=== PATIENT | male | born 1945 | race Caucasian/White ===

== ENCOUNTER 2020-04-30 15:11 | Inpatient (IN) ==
[2020-04-30] MEDS ORDERED: Acetaminophen 325 MG TABLET PO PRN (16:57)
[2020-04-30] MEDS ORDERED: *HR* LORazepam 2 MG/ML VIAL IVP PRN ×3 (18:58)
[2020-04-30] MEDS: 0.9 % Sodium Chloride 1,000 ML IVC SCH (19:36)
[2020-04-30] MEDS: Pantoprazole 40 MG VIAL IVP SCH (19:37)
[2020-04-30] MEDS: levETIRAcetam 250 MG TABLET PO SCH (19:37)
[2020-04-30 19:57] LABS: Basophils % 0.4 %; Eosinophils # 0.1 K/mcL (0.0-0.6); Eosinophils % 0.8 %; Hemoglobin 7.4 g/dL (12.9-16.9); Immature Granulocytes % 4.5 % (0-4); Lymphocytes # 1.1 K/mcL (0.6-4.6); Lymphocytes % 14.6 %; Mean Corpuscular HGB Conc 35.2 g/dL (31.6-35.5); Mean Corpuscular Hemoglobin 31.2 pg (28.0-33.3); Mean Corpuscular Volume 88.6 fL (83.0-100.0); Mean Platelet Volume 9.8 fL (9.4-12.4); Monocytes # 0.8 K/mcL (0.0-1.3); Neutrophils # 5.4 K/mcL (1.6-8.9); Platelet Count 245 K/mcL (140-400); Red Blood Count 2.37 M/mcL (4.19-5.50); Red Cell Distribution Width 15.3 % (11.5-14.5); Segmented Neutrophils % 69.7 %; White Blood Count 7.7 K/mcL (4.3-11.1)
[2020-04-30 20:00] LABS: VBG HCO3 25 mEq/L (21-27); VBG PCO2 44 mmHg (41-51); VBG PH 7.37 pH Units (7.32-7.42); VBG PO2 67 mmHg (25-50)
[2020-04-30 20:04] LABS: INR 1.2; Prothrombin Time 13.8 Seconds (9.4-12.1)
[2020-04-30 20:18] LABS: % Iron Saturation 9 % (20-55); BUN/Creatinine Ratio 8 (6-26); Blood Urea Nitrogen 11 mg/dL (8-23); Calcium 8.7 mg/dL (8.6-10.3); Carbon Dioxide 24 mEq/L (23-29); Chloride 96 mEq/L (98-107); Glucose 106 mg/dL (70-105); Iron 21 mcg/dL (65-175); Lactate Dehydrogenase 136 Units/L (140-271); Magnesium 1.9 mg/dL (1.6-2.6); Osmolality,Calculated 264 (280-300); Phosphorous 3.7 mg/dL (2.7-4.5); Sodium 127 mEq/L (136-145); Transferrin 158 mg/dL (203-362); Troponin I < 0.03 ng/mL (< 0.04); eGFR For African Americans > 60 (> 60); eGFR For Non-African Americans 52 (> 60)
[2020-04-30 20:37] LABS: Ferritin 463 ng/mL (20-250)
[2020-04-30] MEDS ORDERED: 0.9 % Sodium Chloride 250 ML ONE (21:03)
[2020-05-01 01:53] LABS: Hemoglobin 8.7 g/dL (12.9-16.9); Mean Corpuscular HGB Conc 34.8 g/dL (31.6-35.5); Mean Corpuscular Hemoglobin 31.1 pg (28.0-33.3); Mean Corpuscular Volume 89.3 fL (83.0-100.0); Mean Platelet Volume 9.5 fL (9.4-12.4); Platelet Count 229 K/mcL (140-400); Red Cell Distribution Width 14.8 % (11.5-14.5); White Blood Count 7.5 K/mcL (4.3-11.1)
[2020-05-01 02:15] LABS: BUN/Creatinine Ratio 7 (6-26); Blood Urea Nitrogen 10 mg/dL (8-23); Calcium 8.5 mg/dL (8.6-10.3); Carbon Dioxide 23 mEq/L (23-29); Chloride 98 mEq/L (98-107); Glucose 99 mg/dL (70-105); Magnesium 1.9 mg/dL (1.6-2.6); Osmolality,Calculated 267 (280-300); Phosphorous 3.7 mg/dL (2.7-4.5); Potassium 3.9 mEq/L (3.5-5.1); Sodium 129 mEq/L (136-145); eGFR For African Americans > 60 (> 60); eGFR For Non-African Americans 50 (> 60)
[2020-05-01] MEDS: Pantoprazole 40 MG VIAL IVP SCH ×2 (05:42→17:49)
[2020-05-01] MEDS: levETIRAcetam 250 MG TABLET PO SCH (09:44)
[2020-05-01] MEDS ORDERED: levETIRAcetam 250 MG TABLET PO ONE (11:17)
[2020-05-01] MEDS: 0.9 % Sodium Chloride 1,000 ML IVC SCH (12:22)
[2020-05-01] MEDS ORDERED: Thiamine (B-1) 100 MG, Folic Acid 1 MG, MVI, adult with vitamin K 10 ML in 0.9 % Sodi... IVPB SCH (18:00)
[2020-05-01 19:26] LABS: Folate > 22.3 ng/mL (3.0-16.0); Vitamin B12 601 pg/mL (250-1100)
[2020-05-01] MEDS ORDERED: levETIRAcetam 250 MG TABLET PO SCH (21:00)
[2020-05-02 01:52] LABS: Hematocrit 24.8 % (37.5-50.1); Hemoglobin 8.8 g/dL (12.9-16.9); Mean Corpuscular HGB Conc 35.5 g/dL (31.6-35.5); Mean Corpuscular Hemoglobin 30.8 pg (28.0-33.3); Mean Corpuscular Volume 86.7 fL (83.0-100.0); Mean Platelet Volume 10.1 fL (9.4-12.4); Platelet Count 253 K/mcL (140-400); Red Blood Count 2.86 M/mcL (4.19-5.50); Red Cell Distribution Width 14.6 % (11.5-14.5)
[2020-05-02] MEDS: 0.9 % Sodium Chloride 1,000 ML IVC SCH (02:12)
[2020-05-02 03:27] LABS: BUN/Creatinine Ratio 7 (6-26); Blood Urea Nitrogen 9 mg/dL (8-23); Calcium 7.9 mg/dL (8.6-10.3); Carbon Dioxide 17 mEq/L (23-29); Chloride 98 mEq/L (98-107); Glucose 98 mg/dL (70-105); Osmolality,Calculated 265 (280-300); Potassium 3.9 mEq/L (3.5-5.1); Sodium 128 mEq/L (136-145); eGFR For African Americans > 60 (> 60); eGFR For Non-African Americans 54 (> 60)
[2020-05-02] MEDS: Pantoprazole 40 MG VIAL IVP SCH ×2 (04:13→17:34)
[2020-05-02] MEDS ORDERED: levETIRAcetam 1,000 MG in 0.9 % Sodium Chloride 100 ML IVPB SCH (09:00)
[2020-05-02] MEDS ORDERED: levETIRAcetam 250 MG TABLET PO SCH (09:00)
[2020-05-02] MEDS ORDERED: cloNIDine HCL 0.1 MG TABLET PO SCH (12:12)
[2020-05-02] MEDS ORDERED: atenoloL 50 MG TABLET PO SCH (12:15)
[2020-05-02] MEDS ORDERED: Gabapentin 400 MG CAPSULE PO SCH (15:00)
[2020-05-02 16:41] VITALS: BP 163/76
[2020-05-02 16:42] LABS: BUN/Creatinine Ratio 6 (6-26); Blood Urea Nitrogen 7 mg/dL (8-23); Calcium 8.6 mg/dL (8.6-10.3); Carbon Dioxide 22 mEq/L (23-29); Chloride 99 mEq/L (98-107); Glucose 108 mg/dL (70-105); Osmolality,Calculated 265 (280-300); Potassium 3.9 mEq/L (3.5-5.1); Sodium 128 mEq/L (136-145); eGFR For African Americans > 60 (> 60); eGFR For Non-African Americans 55 (> 60)
[2020-05-03 11:40] LABS: Kappa Qnt Free Light Chains 65.29 mg/L (3.30-19.40); Lambda Qnt Free Light Chains 38.85 mg/L (5.71-26.30)
== END 2020-05-02 18:45 | disposition home or self-care (01) | DRG 101 ==
LOC: CDU → 2NNU 18:23
PROVIDERS: ADMIT Pharmacist; ATTEND Internal Medicine
PROC: ENDOEBX (2020-05-02 13:00)

== ENCOUNTER 2021-12-16 13:26 | Inpatient (IN) ==
[2021-12-16] MEDS ORDERED: *HR* HYDROcodone/Acet 5/325 mg TABLET PO PRN (17:37)
[2021-12-16] MEDS ORDERED: Naloxone 0.4 MG/ML INJ IVP PRN (17:37)
[2021-12-16] MEDS ORDERED: *HR* OxyCODONE Immed Rel 5 MG TABLET PO PRN (17:37)
[2021-12-16] MEDS ORDERED: 0.9 % Sodium Chloride 1,000 ML IVC ONE (17:40)
[2021-12-16] MEDS ORDERED: Ipratropium/Albuterol Neb 3 ML IH PRN (17:48)
[2021-12-16] MEDS: Ondansetron 4 MG/2 ML VIAL IVP PRN (18:02)
[2021-12-16] MEDS: Acetaminophen 325 MG TABLET PO PRN (18:06)
[2021-12-16] MEDS ORDERED: *HR* LORazepam 2 MG/ML VIAL IVP PRN ×3 (18:08)
[2021-12-16] MEDS: Piperacillin/Tazobactam 3.375 GM in 0.9 % Sodium Chloride Mini Bag 100 ML IVPB SCH (18:08)
[2021-12-16] MEDS: 0.9 % Sodium Chloride 1,000 ML IVC SCH (19:18)
[2021-12-16 19:24] LABS: Calcium 7.6 mg/dL (8.6-10.3); Potassium 3.7 mEq/L (3.5-5.1)
[2021-12-16] MEDS: Budesonide/Formoterol 80/4.5 1 PUFF INH IH SCH (20:32)
[2021-12-16] MEDS ORDERED: Thiamine (B-1) 100 MG, Folic Acid 1 MG, MVI, adult with vitamin K 10 ML in 0.9 % Sodi... IVPB SCH (21:00)
[2021-12-16] MEDS: levETIRAcetam 250 MG TABLET PO SCH (21:31)
[2021-12-16] MEDS: *HR* HYDROcodone/Acet 5/325 mg TABLET PO PRN (23:19)
[2021-12-17] MEDS ORDERED: Pantoprazole 40 MG VIAL IVP ONE (00:05)
[2021-12-17] MEDS ORDERED: *HR* Promethazine 25 MG/ML VIAL IM ONE (00:33)
[2021-12-17 01:42] LABS: Basophils % 0.2 %; Eosinophils % 0.2 %; Hemoglobin 7.6 g/dL (12.9-16.9); Lymphocytes % 1.7 %; Nucleated Red Blood Cells 0.1 /100 WBC (0); Red Cell Distribution Width 17.2 % (11.5-14.5)
[2021-12-17 01:44] LABS: Basophils # 0.1 K/mcL (0.0-0.2); Eosinophils # 0.1 K/mcL (0.0-0.6); Hematocrit 22.5 % (37.5-50.1); Immature Granulocytes % 4.4 % (0-4); Lymphocytes # 0.6 K/mcL (0.6-4.6); Mean Corpuscular HGB Conc 33.8 g/dL (31.6-35.5); Mean Corpuscular Hemoglobin 31.1 pg (28.0-33.3); Mean Corpuscular Volume 92.2 fL (83.0-100.0); Monocytes % 5.7 %; Red Blood Count 2.44 M/mcL (4.19-5.50); Segmented Neutrophils % 87.8 %
[2021-12-17 01:48] LABS: INR 1.8; Prothrombin Time 19.6 Seconds (9.4-12.1)
[2021-12-17 01:57] LABS: Calcium 7.5 mg/dL (8.6-10.3); Magnesium 1.4 mg/dL (1.6-2.6); Potassium 4.1 mEq/L (3.5-5.1)
[2021-12-17 01:58] LABS: Neutrophils # 30.9 K/mcL (1.6-8.9); Platelet Count 85 K/mcL (140-400); White Blood Count 35.2 K/mcL (4.3-11.1)
[2021-12-17] MEDS: Piperacillin/Tazobactam 3.375 GM in 0.9 % Sodium Chloride Mini Bag 100 ML IVPB SCH ×3 (02:10→17:36)
[2021-12-17] MEDS: Ondansetron 4 MG/2 ML VIAL IVP PRN (03:36)
[2021-12-17] MEDS: Budesonide/Formoterol 80/4.5 1 PUFF INH IH SCH ×2 (07:57→20:53)
[2021-12-17] MEDS: levETIRAcetam 250 MG TABLET PO SCH ×2 (09:10→20:31)
[2021-12-17] MEDS: Thiamine (B-1) 100 MG TABLET PO SCH (09:11)
[2021-12-17] MEDS: Folic Acid 1 MG TABLET PO SCH (09:11)
[2021-12-17] MEDS: Multivit/Ca/Min/Fe/FA 1 TAB TABLET PO SCH (09:11)
[2021-12-17] MEDS: *HR* HYDROcodone/Acet 5/325 mg TABLET PO PRN (09:21)
[2021-12-17] MEDS: 0.9 % Sodium Chloride 1,000 ML IVC SCH (10:14)
[2021-12-17] MEDS ORDERED: *HR* Promethazine 25 MG/ML VIAL IM PRN (10:43)
[2021-12-17] MEDS: Pantoprazole 40 MG VIAL IVP SCH (13:54)
[2021-12-18] MEDS: Acetaminophen 325 MG TABLET PO PRN (02:16)
[2021-12-18] MEDS: Piperacillin/Tazobactam 3.375 GM in 0.9 % Sodium Chloride Mini Bag 100 ML IVPB SCH ×2 (02:19→11:51)
[2021-12-18 02:35] LABS: Calcium 7.5 mg/dL (8.6-10.3); Magnesium 1.6 mg/dL (1.6-2.6); Potassium 4.4 mEq/L (3.5-5.1)
[2021-12-18 05:56] LABS: Basophils % 0.2 %; Eosinophils % 0.4 %; Hemoglobin 6.2 g/dL (12.9-16.9); Red Cell Distribution Width 17.2 % (11.5-14.5)
[2021-12-18 05:58] LABS: Basophils # 0.1 K/mcL (0.0-0.2); Eosinophils # 0.1 K/mcL (0.0-0.6); Hematocrit 18.3 % (37.5-50.1); Immature Granulocytes % 5.1 % (0-4); Immature Platelets 11.3 % (1.1-6.1); Lymphocytes % 3.4 %; Mean Corpuscular HGB Conc 33.9 g/dL (31.6-35.5); Mean Corpuscular Volume 91.5 fL (83.0-100.0); Mean Platelet Volume 13.5 fL (9.4-12.4); Monocytes # 1.9 K/mcL (0.0-1.3); Monocytes % 7.7 %; Neutrophils # 20.7 K/mcL (1.6-8.9); Segmented Neutrophils % 83.2 %; White Blood Count 24.9 K/mcL (4.3-11.1)
[2021-12-18 06:03] LABS: Lymphocytes # 0.9 K/mcL (0.6-4.6); Platelet Count 49 K/mcL (140-400)
[2021-12-18] MEDS: Budesonide/Formoterol 80/4.5 1 PUFF INH IH SCH ×2 (07:57→19:52)
[2021-12-18] MEDS ORDERED: 0.9 % Sodium Chloride 250 ML IVC SCH (08:00)
[2021-12-18] MEDS: levETIRAcetam 250 MG TABLET PO SCH ×2 (10:29→19:59)
[2021-12-18] MEDS: Multivit/Ca/Min/Fe/FA 1 TAB TABLET PO SCH (10:29)
[2021-12-18] MEDS: Thiamine (B-1) 100 MG TABLET PO SCH (10:29)
[2021-12-18] MEDS: Folic Acid 1 MG TABLET PO SCH (10:30)
[2021-12-18] MEDS: Pantoprazole 40 MG VIAL IVP SCH (10:30)
[2021-12-18 11:19] LABS: Ferritin 881 ng/mL (20-250); Iron < 10 mcg/dL (65-175); Transferrin 111 mg/dL (203-362)
[2021-12-18] MEDS: *HR* OxyCODONE Immed Rel 5 MG TABLET PO PRN (13:00)
[2021-12-18] MEDS: Cefepime HCl 2,000 MG in 0.9 % Sodium Chloride Mini Bag 100 ML IVPB SCH ×2 (13:02→23:35)
[2021-12-18 16:45] LABS: Hematocrit 21.7 % (37.5-50.1); Hemoglobin 7.3 g/dL (12.9-16.9)
[2021-12-18] MEDS ORDERED: Famotidine 20 MG TABLET PO SCH (21:00)
[2021-12-19 03:09] LABS: Eosinophils % 0.3 %; Hematocrit 21.8 % (37.5-50.1); Hemoglobin 7.5 g/dL (12.9-16.9); Mean Corpuscular HGB Conc 34.4 g/dL (31.6-35.5); Mean Corpuscular Hemoglobin 31.1 pg (28.0-33.3); Mean Corpuscular Volume 90.5 fL (83.0-100.0); Red Blood Count 2.41 M/mcL (4.19-5.50); Red Cell Distribution Width 17.2 % (11.5-14.5)
[2021-12-19 03:11] LABS: Basophils # 0.1 K/mcL (0.0-0.2); Basophils % 0.3 %; Eosinophils # 0.1 K/mcL (0.0-0.6); Immature Granulocytes % 5.5 % (0-4); Immature Platelets 10.6 % (1.1-6.1); Lymphocytes # 0.9 K/mcL (0.6-4.6); Lymphocytes % 3.8 %; Monocytes # 1.9 K/mcL (0.0-1.3); Monocytes % 8.3 %; Segmented Neutrophils % 81.8 %; White Blood Count 23.2 K/mcL (4.3-11.1)
[2021-12-19] MEDS: *HR* OxyCODONE Immed Rel 5 MG TABLET PO PRN (03:16)
[2021-12-19 03:18] LABS: Platelet Count 44 K/mcL (140-400)
[2021-12-19 03:28] LABS: BUN/Creatinine Ratio 14 (6-26); Blood Urea Nitrogen 19 mg/dL (8-23); Calcium 7.9 mg/dL (8.6-10.3); Carbon Dioxide 19 mEq/L (23-29); Chloride 100 mEq/L (98-107); Glucose 56 mg/dL (70-105); Magnesium 1.6 mg/dL (1.6-2.6); Osmolality,Calculated 262 (280-300); Potassium 4.3 mEq/L (3.5-5.1); Sodium 126 mEq/L (136-145); eGFR For African Americans > 60 (> 60); eGFR For Non-African Americans 50 (> 60)
[2021-12-19 03:37] LABS: Burr Cells 2+ (Not Present)
[2021-12-19 03:38] LABS: Platelet Estimate Marked Decrease (Normal); Poikilocytosis 2+ (Not Present)
[2021-12-19] MEDS: Budesonide/Formoterol 80/4.5 1 PUFF INH IH SCH ×2 (07:47→20:35)
[2021-12-19] MEDS ORDERED: *HR* LORazepam 2 MG/ML VIAL IVP STA (10:02)
[2021-12-19] MEDS: Folic Acid 1 MG TABLET PO SCH (10:03)
[2021-12-19] MEDS: Multivit/Ca/Min/Fe/FA 1 TAB TABLET PO SCH (10:04)
[2021-12-19] MEDS: Thiamine (B-1) 100 MG TABLET PO SCH (10:04)
[2021-12-19] MEDS: levETIRAcetam 250 MG TABLET PO SCH (10:04)
[2021-12-19] MEDS ORDERED: *HR* LORazepam 2 MG/ML VIAL IVP PRN (10:09)
[2021-12-19] MEDS: Cefepime HCl 2,000 MG in 0.9 % Sodium Chloride Mini Bag 100 ML IVPB SCH (10:14)
[2021-12-19] MEDS: Pantoprazole 40 MG VIAL IVP SCH (10:15)
[2021-12-19] MEDS: cloNIDine HCL 0.1 MG TABLET PO SCH ×3 (10:16→23:08)
[2021-12-19] MEDS ORDERED: Acetaminophen IV 1,000 MG/100 ML BAG IVPB ONE (10:35)
[2021-12-19] MEDS: levETIRAcetam 750 MG in 0.9 % Sodium Chloride 100 ML IVPB SCH ×2 (10:37→21:37)
[2021-12-19] MEDS: Beer can PO SCH ×2 (12:09→16:22)
[2021-12-19] MEDS: Ertapenem 1,000 MG in 0.9 % Sodium Chloride Mini Bag 100 ML IVPB SCH (12:11)
[2021-12-19] MEDS ORDERED: Fosfomycin Tromethamine 3 GM Packet PO ONE (14:15)
[2021-12-19] MEDS: Gabapentin 400 MG CAPSULE PO SCH ×2 (16:19→21:37)
[2021-12-19] MEDS: Famotidine 20 MG TABLET PO SCH (21:38)
[2021-12-20 03:43] LABS: Hemoglobin 7.8 g/dL (12.9-16.9); Red Cell Distribution Width 17.1 % (11.5-14.5)
[2021-12-20 03:45] LABS: Hematocrit 23.2 % (37.5-50.1); Immature Platelets 9.5 % (1.1-6.1); Mean Corpuscular HGB Conc 33.6 g/dL (31.6-35.5); Mean Corpuscular Volume 89.2 fL (83.0-100.0); Mean Platelet Volume 11.9 fL (9.4-12.4); Red Blood Count 2.6 M/mcL (4.19-5.50); White Blood Count 14.9 K/mcL (4.3-11.1)
[2021-12-20 04:57] LABS: BUN/Creatinine Ratio 11 (6-26); Blood Urea Nitrogen 13 mg/dL (8-23); Calcium 8.1 mg/dL (8.6-10.3); Carbon Dioxide 17 mEq/L (23-29); Chloride 98 mEq/L (98-107); Glucose 56 mg/dL (70-105); Magnesium 1.6 mg/dL (1.6-2.6); Osmolality,Calculated 260 (280-300); Potassium 3.9 mEq/L (3.5-5.1); Sodium 126 mEq/L (136-145); eGFR For African Americans > 60 (> 60); eGFR For Non-African Americans > 60 (> 60)
[2021-12-20] MEDS: Budesonide/Formoterol 80/4.5 1 PUFF INH IH SCH ×2 (07:08→20:56)
[2021-12-20] MEDS: Beer can PO SCH ×3 (08:45→18:16)
[2021-12-20] MEDS: Pantoprazole 40 MG VIAL IVP SCH (08:45)
[2021-12-20] MEDS: Multivit/Ca/Min/Fe/FA 1 TAB TABLET PO SCH (08:45)
[2021-12-20] MEDS: cloNIDine HCL 0.1 MG TABLET PO SCH ×2 (08:45→16:27)
[2021-12-20] MEDS: Folic Acid 1 MG TABLET PO SCH (08:46)
[2021-12-20] MEDS: Ertapenem 1,000 MG in 0.9 % Sodium Chloride Mini Bag 100 ML IVPB SCH (08:48)
[2021-12-20] MEDS: Thiamine (B-1) 100 MG TABLET PO SCH (08:48)
[2021-12-20] MEDS: Gabapentin 400 MG CAPSULE PO SCH ×3 (08:48→20:34)
[2021-12-20 10:05] LABS: Adenovirus Not Detected (Not Detect); Coronavirus 229E Not Detected (Not Detect); Coronavirus HKU1 Not Detected (Not Detect); Coronavirus NL63 Not Detected (Not Detect); Coronavirus OC43 Not Detected (Not Detect)
[2021-12-20 10:06] LABS: Bordetella Pertussis Not Detected (Not Detect); Chlamydophila pneumoniae Not Detected (Not Detect); Human Metapneumovirus Not Detected (Not Detect); Human Rhinovirus/Enterovirus Not Detected (Not Detect); Influenza A Subtype 2009 H1 Not Detected (Not Detect); Influenza B Not Detected (Not Detect); Mycoplasma pneumoniae Not Detected (Not Detect); Parainfluenza Virus 1 Not Detected (Not Detect); Parainfluenza Virus 2 Not Detected (Not Detect); Parainfluenza Virus 3 Not Detected (Not Detect); Parainfluenza Virus 4 Not Detected (Not Detect); Respiratory Syncytial Virus Not Detected (Not Detect); SARS-CoV-2 DETECTED (Not Detect)
[2021-12-20] MEDS: levETIRAcetam 750 MG in 0.9 % Sodium Chloride 100 ML IVPB SCH ×2 (10:23→20:34)
[2021-12-20] MEDS: Famotidine 20 MG TABLET PO SCH (20:34)
[2021-12-21] MEDS: cloNIDine HCL 0.1 MG TABLET PO SCH ×3 (00:59→17:07)
[2021-12-21] MEDS: Budesonide/Formoterol 80/4.5 1 PUFF INH IH SCH ×2 (07:20→19:17)
[2021-12-21 08:41] LABS: Hematocrit 20.5 % (37.5-50.1); Immature Platelets 10.8 % (1.1-6.1); Mean Corpuscular HGB Conc 34.1 g/dL (31.6-35.5); Mean Corpuscular Hemoglobin 30.6 pg (28.0-33.3); Mean Corpuscular Volume 89.5 fL (83.0-100.0); Mean Platelet Volume 11.6 fL (9.4-12.4); Red Blood Count 2.29 M/mcL (4.19-5.50); White Blood Count 10.5 K/mcL (4.3-11.1)
[2021-12-21 08:51] LABS: BUN/Creatinine Ratio 12 (6-26); Blood Urea Nitrogen 13 mg/dL (8-23); Calcium 8.2 mg/dL (8.6-10.3); Carbon Dioxide 22 mEq/L (23-29); Chloride 98 mEq/L (98-107); Glucose 92 mg/dL (70-105); Osmolality,Calculated 258 (280-300); Potassium 3.8 mEq/L (3.5-5.1); Sodium 124 mEq/L (136-145); eGFR For African Americans > 60 (> 60); eGFR For Non-African Americans > 60 (> 60)
[2021-12-21] MEDS: Beer can PO SCH ×3 (09:35→17:07)
[2021-12-21] MEDS: Thiamine (B-1) 100 MG TABLET PO SCH (10:10)
[2021-12-21] MEDS: Gabapentin 400 MG CAPSULE PO SCH ×3 (10:10→20:47)
[2021-12-21] MEDS: Pantoprazole 40 MG VIAL IVP SCH (10:11)
[2021-12-21] MEDS: levETIRAcetam 750 MG in 0.9 % Sodium Chloride 100 ML IVPB SCH ×2 (10:11→20:47)
[2021-12-21] MEDS: Folic Acid 1 MG TABLET PO SCH (10:11)
[2021-12-21] MEDS: Multivit/Ca/Min/Fe/FA 1 TAB TABLET PO SCH (10:11)
[2021-12-21] MEDS: Ertapenem 1,000 MG in 0.9 % Sodium Chloride Mini Bag 100 ML IVPB SCH (10:36)
[2021-12-21] MEDS: Famotidine 20 MG TABLET PO SCH (20:48)
[2021-12-22] MEDS: cloNIDine HCL 0.1 MG TABLET PO SCH ×4 (00:53→23:52)
[2021-12-22 05:30] LABS: Immature Platelets 13.2 % (1.1-6.1); Mean Corpuscular HGB Conc 33.3 g/dL (31.6-35.5); Mean Corpuscular Hemoglobin 29.9 pg (28.0-33.3); Mean Corpuscular Volume 89.6 fL (83.0-100.0); Red Blood Count 2.01 M/mcL (4.19-5.50); Red Cell Distribution Width 16.9 % (11.5-14.5); White Blood Count 9.2 K/mcL (4.3-11.1)
[2021-12-22 05:45] LABS: BUN/Creatinine Ratio 11 (6-26); Blood Urea Nitrogen 13 mg/dL (8-23); Calcium 7.8 mg/dL (8.6-10.3); Carbon Dioxide 21 mEq/L (23-29); Chloride 97 mEq/L (98-107); Glucose 99 mg/dL (70-105); Magnesium 1.7 mg/dL (1.6-2.6); Osmolality,Calculated 258 (280-300); Potassium 3.9 mEq/L (3.5-5.1); Sodium 124 mEq/L (136-145); eGFR For African Americans > 60 (> 60); eGFR For Non-African Americans > 60 (> 60)
[2021-12-22] MEDS: Budesonide/Formoterol 80/4.5 1 PUFF INH IH SCH ×2 (07:37→19:26)
[2021-12-22] MEDS: levETIRAcetam 750 MG in 0.9 % Sodium Chloride 100 ML IVPB SCH ×2 (07:50→20:23)
[2021-12-22] MEDS: Multivit/Ca/Min/Fe/FA 1 TAB TABLET PO SCH (07:50)
[2021-12-22] MEDS: Beer can PO SCH ×3 (07:50→16:49)
[2021-12-22] MEDS: Thiamine (B-1) 100 MG TABLET PO SCH (07:50)
[2021-12-22] MEDS: Folic Acid 1 MG TABLET PO SCH (07:50)
[2021-12-22] MEDS: Gabapentin 400 MG CAPSULE PO SCH ×3 (07:50→20:24)
[2021-12-22] MEDS: Pantoprazole 40 MG VIAL IVP SCH (07:51)
[2021-12-22] MEDS: Ertapenem 1,000 MG in 0.9 % Sodium Chloride Mini Bag 100 ML IVPB SCH (10:42)
[2021-12-22 17:49] LABS: Hemoglobin 7.4 g/dL (12.9-16.9)
[2021-12-22 17:51] LABS: Hematocrit 22.3 % (37.5-50.1)
[2021-12-22] MEDS: Famotidine 20 MG TABLET PO SCH (20:24)
[2021-12-22] MEDS: *HR* HYDROcodone/Acet 5/325 mg TABLET PO PRN (23:56)
[2021-12-23] MEDS: *HR* OxyCODONE Immed Rel 5 MG TABLET PO PRN (04:59)
[2021-12-23 05:47] LABS: Hemoglobin 7.2 g/dL (12.9-16.9)
[2021-12-23 05:48] LABS: Hematocrit 21.1 % (37.5-50.1); Immature Platelets 12.4 % (1.1-6.1); Mean Corpuscular HGB Conc 34.1 g/dL (31.6-35.5); Mean Corpuscular Hemoglobin 30.3 pg (28.0-33.3); Mean Corpuscular Volume 88.7 fL (83.0-100.0); Mean Platelet Volume 12.1 fL (9.4-12.4); Red Blood Count 2.38 M/mcL (4.19-5.50); White Blood Count 10.5 K/mcL (4.3-11.1)
[2021-12-23 06:03] LABS: BUN/Creatinine Ratio 11 (6-26); Blood Urea Nitrogen 13 mg/dL (8-23); Calcium 7.8 mg/dL (8.6-10.3); Carbon Dioxide 21 mEq/L (23-29); Chloride 96 mEq/L (98-107); Glucose 110 mg/dL (70-105); Osmolality,Calculated 257 (280-300); Potassium 4.1 mEq/L (3.5-5.1); Sodium 123 mEq/L (136-145); eGFR For African Americans > 60 (> 60); eGFR For Non-African Americans > 60 (> 60)
[2021-12-23] MEDS: Budesonide/Formoterol 80/4.5 1 PUFF INH IH SCH ×2 (07:53→19:58)
[2021-12-23] MEDS: levETIRAcetam 750 MG in 0.9 % Sodium Chloride 100 ML IVPB SCH (10:21)
[2021-12-23] MEDS: Multivit/Ca/Min/Fe/FA 1 TAB TABLET PO SCH (10:23)
[2021-12-23] MEDS: Gabapentin 400 MG CAPSULE PO SCH ×3 (10:23→21:16)
[2021-12-23] MEDS: cloNIDine HCL 0.1 MG TABLET PO SCH ×3 (10:23→23:39)
[2021-12-23] MEDS: *HR* HYDROcodone/Acet 5/325 mg TABLET PO PRN ×2 (10:23→17:25)
[2021-12-23] MEDS: Beer can PO SCH ×3 (10:24→18:35)
[2021-12-23] MEDS: Folic Acid 1 MG TABLET PO SCH (10:24)
[2021-12-23] MEDS: Thiamine (B-1) 100 MG TABLET PO SCH (10:24)
[2021-12-23] MEDS: Pantoprazole 40 MG VIAL IVP SCH (10:24)
[2021-12-23] MEDS: Ertapenem 1,000 MG in 0.9 % Sodium Chloride Mini Bag 100 ML IVPB SCH (10:26)
[2021-12-23] MEDS: levETIRAcetam 250 MG TABLET PO SCH (17:31)
[2021-12-23] MEDS: Famotidine 20 MG TABLET PO SCH (21:16)
[2021-12-24 02:00] LABS: Hematocrit 21.7 % (37.5-50.1); Hemoglobin 7.2 g/dL (12.9-16.9); Mean Corpuscular HGB Conc 33.2 g/dL (31.6-35.5); Mean Corpuscular Hemoglobin 29.9 pg (28.0-33.3); Mean Platelet Volume 11.1 fL (9.4-12.4); Platelet Count 122 K/mcL (140-400); Red Blood Count 2.41 M/mcL (4.19-5.50); Red Cell Distribution Width 15.9 % (11.5-14.5); White Blood Count 10.3 K/mcL (4.3-11.1)
[2021-12-24 02:24] LABS: BUN/Creatinine Ratio 14 (6-26); Blood Urea Nitrogen 14 mg/dL (8-23); Calcium 7.9 mg/dL (8.6-10.3); Carbon Dioxide 23 mEq/L (23-29); Chloride 96 mEq/L (98-107); Glucose 104 mg/dL (70-105); Osmolality,Calculated 259 (280-300); Potassium 4.4 mEq/L (3.5-5.1); Sodium 124 mEq/L (136-145); eGFR For African Americans > 60 (> 60); eGFR For Non-African Americans > 60 (> 60)
[2021-12-24] MEDS: levETIRAcetam 250 MG TABLET PO SCH ×2 (05:01→16:40)
[2021-12-24] MEDS: Budesonide/Formoterol 80/4.5 1 PUFF INH IH SCH ×2 (07:30→20:19)
[2021-12-24] MEDS: Ertapenem 1,000 MG in 0.9 % Sodium Chloride Mini Bag 100 ML IVPB SCH (08:08)
[2021-12-24] MEDS: Pantoprazole 40 MG VIAL IVP SCH (08:08)
[2021-12-24] MEDS: Gabapentin 400 MG CAPSULE PO SCH ×3 (08:09→20:37)
[2021-12-24] MEDS: *HR* HYDROcodone/Acet 5/325 mg TABLET PO PRN (08:09)
[2021-12-24] MEDS: Folic Acid 1 MG TABLET PO SCH (08:09)
[2021-12-24] MEDS: cloNIDine HCL 0.1 MG TABLET PO SCH ×2 (08:09→16:40)
[2021-12-24] MEDS: Thiamine (B-1) 100 MG TABLET PO SCH (08:09)
[2021-12-24] MEDS: Multivit/Ca/Min/Fe/FA 1 TAB TABLET PO SCH (08:10)
[2021-12-24] MEDS: Beer can PO SCH ×3 (09:10→16:40)
[2021-12-24] MEDS: Famotidine 20 MG TABLET PO SCH (20:37)
[2021-12-25] MEDS: cloNIDine HCL 0.1 MG TABLET PO SCH ×3 (00:59→15:42)
[2021-12-25] MEDS: levETIRAcetam 250 MG TABLET PO SCH ×2 (05:28→17:27)
[2021-12-25 05:37] LABS: Basophils # 0.1 K/mcL (0.0-0.2); Basophils % 0.4 %; Eosinophils # 0.1 K/mcL (0.0-0.6); Eosinophils % 0.5 %; Hematocrit 21.8 % (37.5-50.1); Hemoglobin 7.1 g/dL (12.9-16.9); Immature Granulocytes % 3.6 % (0-4); Lymphocytes # 1.1 K/mcL (0.6-4.6); Lymphocytes % 9.2 %; Mean Corpuscular HGB Conc 32.6 g/dL (31.6-35.5); Mean Corpuscular Hemoglobin 29.5 pg (28.0-33.3); Mean Corpuscular Volume 90.5 fL (83.0-100.0); Mean Platelet Volume 10.8 fL (9.4-12.4); Monocytes # 0.8 K/mcL (0.0-1.3); Monocytes % 6.5 %; Neutrophils # 9.2 K/mcL (1.6-8.9); Platelet Count 165 K/mcL (140-400); Red Blood Count 2.41 M/mcL (4.19-5.50); Red Cell Distribution Width 15.9 % (11.5-14.5); Segmented Neutrophils % 79.8 %; White Blood Count 11.5 K/mcL (4.3-11.1)
[2021-12-25 05:56] LABS: Alanine Aminotransferase 10 Units/L (7-52); Albumin 2.6 g/dL (3.5-5.7); Albumin/Globulin Ratio 1.1 (1.1-2.2); Alkaline Phosphatase 51 Units/L (34-104); Aspartate Amino Transferase 16 Units/L (13-39); BUN/Creatinine Ratio 14 (6-26); Bilirubin,Total 0.6 mg/dL (0.3-1.0); Blood Urea Nitrogen 14 mg/dL (8-23); Calcium 8.3 mg/dL (8.6-10.3); Carbon Dioxide 24 mEq/L (23-29); Chloride 96 mEq/L (98-107); Globulin 2.3 g/dL (2.4-3.5); Glucose 101 mg/dL (70-105); Magnesium 1.7 mg/dL (1.6-2.6); Osmolality,Calculated 263 (280-300); Potassium 4.3 mEq/L (3.5-5.1); Sodium 126 mEq/L (136-145); Total Protein 4.9 g/dL (6.4-8.9); eGFR For African Americans > 60 (> 60); eGFR For Non-African Americans > 60 (> 60)
[2021-12-25] MEDS: Budesonide/Formoterol 80/4.5 1 PUFF INH IH SCH ×2 (07:11→19:45)
[2021-12-25] MEDS: Pantoprazole 40 MG VIAL IVP SCH (08:39)
[2021-12-25] MEDS: Ertapenem 1,000 MG in 0.9 % Sodium Chloride Mini Bag 100 ML IVPB SCH (08:42)
[2021-12-25] MEDS: Gabapentin 400 MG CAPSULE PO SCH ×3 (08:50→19:38)
[2021-12-25] MEDS: Folic Acid 1 MG TABLET PO SCH (08:51)
[2021-12-25] MEDS: Thiamine (B-1) 100 MG TABLET PO SCH (08:52)
[2021-12-25] MEDS: Multivit/Ca/Min/Fe/FA 1 TAB TABLET PO SCH (08:58)
[2021-12-25] MEDS: Beer can PO SCH ×3 (08:58→15:43)
[2021-12-25] MEDS: Cyanocobalamin (B-12) 1,000 MCG TABLET PO SCH (18:18)
[2021-12-25] MEDS: Acetaminophen 325 MG TABLET PO PRN (19:38)
[2021-12-25] MEDS: Famotidine 20 MG TABLET PO SCH (19:38)
[2021-12-26] MEDS: cloNIDine HCL 0.1 MG TABLET PO SCH ×3 (00:14→16:05)
[2021-12-26 02:11] LABS: Basophils % 0.4 %; Eosinophils # 0.1 K/mcL (0.0-0.6); Eosinophils % 0.8 %; Hematocrit 18.8 % (37.5-50.1); Hemoglobin 6.4 g/dL (12.9-16.9); Immature Granulocytes % 4.1 % (0-4); Lymphocytes # 0.9 K/mcL (0.6-4.6); Mean Corpuscular Hemoglobin 30.5 pg (28.0-33.3); Mean Corpuscular Volume 89.5 fL (83.0-100.0); Mean Platelet Volume 10.5 fL (9.4-12.4); Monocytes # 0.7 K/mcL (0.0-1.3); Monocytes % 7.5 %; Neutrophils # 6.9 K/mcL (1.6-8.9); Platelet Count 174 K/mcL (140-400); Red Cell Distribution Width 15.9 % (11.5-14.5); Segmented Neutrophils % 77.2 %; White Blood Count 8.9 K/mcL (4.3-11.1)
[2021-12-26 02:43] LABS: BUN/Creatinine Ratio 13 (6-26); Blood Urea Nitrogen 13 mg/dL (8-23); Carbon Dioxide 23 mEq/L (23-29); Chloride 92 mEq/L (98-107); Glucose 86 mg/dL (70-105); Osmolality,Calculated 253 (280-300); Potassium 4.5 mEq/L (3.5-5.1); Sodium 122 mEq/L (136-145); eGFR For African Americans > 60 (> 60); eGFR For Non-African Americans > 60 (> 60)
[2021-12-26] MEDS ORDERED: 0.9 % Sodium Chloride 250 ML IVC SCH (04:15)
[2021-12-26] MEDS: levETIRAcetam 250 MG TABLET PO SCH ×2 (05:29→16:04)
[2021-12-26] MEDS: Acetaminophen 325 MG TABLET PO PRN ×2 (05:37→13:37)
[2021-12-26] MEDS: Budesonide/Formoterol 80/4.5 1 PUFF INH IH SCH ×2 (07:52→20:51)
[2021-12-26] MEDS: Pantoprazole 40 MG VIAL IVP SCH (08:25)
[2021-12-26] MEDS: Ertapenem 1,000 MG in 0.9 % Sodium Chloride Mini Bag 100 ML IVPB SCH (08:25)
[2021-12-26] MEDS: Thiamine (B-1) 100 MG TABLET PO SCH (08:26)
[2021-12-26] MEDS: Gabapentin 400 MG CAPSULE PO SCH ×3 (08:27→20:47)
[2021-12-26] MEDS: Folic Acid 1 MG TABLET PO SCH (08:27)
[2021-12-26] MEDS: Cyanocobalamin (B-12) 1,000 MCG TABLET PO SCH (08:27)
[2021-12-26] MEDS: Multivit/Ca/Min/Fe/FA 1 TAB TABLET PO SCH (08:27)
[2021-12-26] MEDS: Beer can PO SCH ×3 (08:28→16:00)
[2021-12-26] MEDS: Famotidine 20 MG TABLET PO SCH (20:47)
[2021-12-27] MEDS: cloNIDine HCL 0.1 MG TABLET PO SCH ×4 (01:06→23:04)
[2021-12-27] MEDS: *HR* HYDROcodone/Acet 5/325 mg TABLET PO PRN ×2 (01:15→15:12)
[2021-12-27] MEDS: levETIRAcetam 250 MG TABLET PO SCH ×2 (04:26→17:44)
[2021-12-27 05:19] LABS: Hematocrit 22.1 % (37.5-50.1); Hemoglobin 7.5 g/dL (12.9-16.9); Mean Corpuscular HGB Conc 33.9 g/dL (31.6-35.5); Mean Corpuscular Hemoglobin 30.5 pg (28.0-33.3); Mean Corpuscular Volume 89.8 fL (83.0-100.0); Mean Platelet Volume 11.1 fL (9.4-12.4); Platelet Count 202 K/mcL (140-400); Red Blood Count 2.46 M/mcL (4.19-5.50); Red Cell Distribution Width 15.3 % (11.5-14.5); White Blood Count 7.7 K/mcL (4.3-11.1)
[2021-12-27 05:36] LABS: Alanine Aminotransferase 10 Units/L (7-52); Albumin 2.6 g/dL (3.5-5.7); Alkaline Phosphatase 54 Units/L (34-104); Aspartate Amino Transferase 18 Units/L (13-39); BUN/Creatinine Ratio 13 (6-26); Bilirubin,Direct 0.2 mg/dL (0.0-0.2); Bilirubin,Indirect 0.4 mg/dL (0.0-1.0); Bilirubin,Total 0.6 mg/dL (0.3-1.0); Blood Urea Nitrogen 14 mg/dL (8-23); Calcium 8.2 mg/dL (8.6-10.3); Carbon Dioxide 24 mEq/L (23-29); Chloride 94 mEq/L (98-107); Glucose 97 mg/dL (70-105); Magnesium 1.8 mg/dL (1.6-2.6); Osmolality,Calculated 258 (280-300); Phosphorous 3.4 mg/dL (2.7-4.5); Potassium 4.5 mEq/L (3.5-5.1); Sodium 124 mEq/L (136-145); eGFR For African Americans > 60 (> 60); eGFR For Non-African Americans > 60 (> 60)
[2021-12-27 05:40] LABS: Albumin/Globulin Ratio 1.1 (1.1-2.2); Globulin 2.4 g/dL (2.4-3.5)
[2021-12-27] MEDS: Budesonide/Formoterol 80/4.5 1 PUFF INH IH SCH ×2 (08:43→20:06)
[2021-12-27] MEDS: Acetaminophen 325 MG TABLET PO PRN ×2 (09:56→17:49)
[2021-12-27] MEDS: Gabapentin 400 MG CAPSULE PO SCH ×3 (09:57→20:47)
[2021-12-27] MEDS: Folic Acid 1 MG TABLET PO SCH (09:57)
[2021-12-27] MEDS: Cyanocobalamin (B-12) 1,000 MCG TABLET PO SCH (09:57)
[2021-12-27] MEDS: Multivit/Ca/Min/Fe/FA 1 TAB TABLET PO SCH (09:57)
[2021-12-27] MEDS: Thiamine (B-1) 100 MG TABLET PO SCH (09:58)
[2021-12-27] MEDS: Pantoprazole 40 MG VIAL IVP SCH (09:58)
[2021-12-27] MEDS: Beer can PO SCH ×2 (09:58→17:44)
[2021-12-27] MEDS: Ertapenem 1,000 MG in 0.9 % Sodium Chloride Mini Bag 100 ML IVPB SCH (09:58)
[2021-12-27] MEDS: Famotidine 20 MG TABLET PO SCH (20:47)
[2021-12-28] MEDS: levETIRAcetam 250 MG TABLET PO SCH ×2 (05:58→17:26)
[2021-12-28] MEDS: *HR* HYDROcodone/Acet 5/325 mg TABLET PO PRN (06:09)
[2021-12-28 06:14] LABS: Hemoglobin 7.3 g/dL (12.9-16.9); Mean Corpuscular HGB Conc 33.2 g/dL (31.6-35.5); Mean Corpuscular Hemoglobin 29.9 pg (28.0-33.3); Mean Corpuscular Volume 90.2 fL (83.0-100.0); Mean Platelet Volume 10.2 fL (9.4-12.4); Platelet Count 183 K/mcL (140-400); Red Blood Count 2.44 M/mcL (4.19-5.50); Red Cell Distribution Width 15.2 % (11.5-14.5); White Blood Count 7.9 K/mcL (4.3-11.1)
[2021-12-28 06:23] LABS: BUN/Creatinine Ratio 16 (6-26); Blood Urea Nitrogen 17 mg/dL (8-23); Calcium 8.4 mg/dL (8.6-10.3); Carbon Dioxide 24 mEq/L (23-29); Chloride 92 mEq/L (98-107); Glucose 95 mg/dL (70-105); Osmolality,Calculated 259 (280-300); Potassium 4.5 mEq/L (3.5-5.1); Sodium 124 mEq/L (136-145); eGFR For African Americans > 60 (> 60); eGFR For Non-African Americans > 60 (> 60)
[2021-12-28] MEDS: Budesonide/Formoterol 80/4.5 1 PUFF INH IH SCH ×2 (07:51→20:05)
[2021-12-28] MEDS: Multivit/Ca/Min/Fe/FA 1 TAB TABLET PO SCH (08:52)
[2021-12-28] MEDS: Gabapentin 400 MG CAPSULE PO SCH ×3 (08:52→20:50)
[2021-12-28] MEDS: Cyanocobalamin (B-12) 1,000 MCG TABLET PO SCH (08:52)
[2021-12-28] MEDS: Beer can PO SCH ×2 (08:52→15:35)
[2021-12-28] MEDS: cloNIDine HCL 0.1 MG TABLET PO SCH ×3 (08:52→23:54)
[2021-12-28] MEDS: Folic Acid 1 MG TABLET PO SCH (08:52)
[2021-12-28] MEDS: Thiamine (B-1) 100 MG TABLET PO SCH (08:52)
[2021-12-28] MEDS: Pantoprazole 40 MG VIAL IVP SCH (08:53)
[2021-12-28] MEDS: Ertapenem 1,000 MG in 0.9 % Sodium Chloride Mini Bag 100 ML IVPB SCH (08:53)
[2021-12-28] MEDS: *HR* OxyCODONE Immed Rel 5 MG TABLET PO PRN (17:29)
[2021-12-28] MEDS: Famotidine 20 MG TABLET PO SCH (20:50)
[2021-12-29 01:19] LABS: Hematocrit 22.6 % (37.5-50.1); Hemoglobin 7.4 g/dL (12.9-16.9); Mean Corpuscular HGB Conc 32.7 g/dL (31.6-35.5); Mean Corpuscular Hemoglobin 29.4 pg (28.0-33.3); Mean Corpuscular Volume 89.7 fL (83.0-100.0); Mean Platelet Volume 11.5 fL (9.4-12.4); Platelet Count 197 K/mcL (140-400); Red Blood Count 2.52 M/mcL (4.19-5.50); Red Cell Distribution Width 15.5 % (11.5-14.5); White Blood Count 8.1 K/mcL (4.3-11.1)
[2021-12-29 01:44] LABS: BUN/Creatinine Ratio 14 (6-26); Blood Urea Nitrogen 17 mg/dL (8-23); Calcium 8.2 mg/dL (8.6-10.3); Carbon Dioxide 24 mEq/L (23-29); Chloride 94 mEq/L (98-107); Glucose 111 mg/dL (70-105); Osmolality,Calculated 262 (280-300); Potassium 4.7 mEq/L (3.5-5.1); Sodium 125 mEq/L (136-145); eGFR For African Americans > 60 (> 60); eGFR For Non-African Americans 59 (> 60)
[2021-12-29] MEDS: levETIRAcetam 250 MG TABLET PO SCH ×2 (06:16→16:34)
[2021-12-29] MEDS: Budesonide/Formoterol 80/4.5 1 PUFF INH IH SCH (07:11)
[2021-12-29] MEDS: Beer can PO SCH ×2 (10:33→16:34)
[2021-12-29] MEDS: Multivit/Ca/Min/Fe/FA 1 TAB TABLET PO SCH (10:39)
[2021-12-29] MEDS: Gabapentin 400 MG CAPSULE PO SCH ×2 (10:40→16:35)
[2021-12-29] MEDS: cloNIDine HCL 0.1 MG TABLET PO SCH ×2 (10:40→16:35)
[2021-12-29] MEDS: Thiamine (B-1) 100 MG TABLET PO SCH (10:40)
[2021-12-29] MEDS: Pantoprazole 40 MG VIAL IVP SCH (10:40)
[2021-12-29] MEDS: Cyanocobalamin (B-12) 1,000 MCG TABLET PO SCH (10:40)
[2021-12-29] MEDS: Ertapenem 1,000 MG in 0.9 % Sodium Chloride Mini Bag 100 ML IVPB SCH (10:42)
[2021-12-29] MEDS: Folic Acid 1 MG TABLET PO SCH (10:44)
[2021-12-29 16:37] VITALS: BP 128/61
[2021-12-29] MEDS: *HR* HYDROcodone/Acet 5/325 mg TABLET PO PRN (17:17)
[2021-12-29 18:53] VITALS: PULSE 99; TEMP 99.6; O2SAT 94
== END 2021-12-29 18:25 | DRG 871 ==
LOC: 3NENU → SUATTDRO 18:50 → 3NENU 12-19 12:18
PROVIDERS: ADMIT Student in an Organized Health Care Education/Training Program; ATTEND Internal Medicine